=== PATIENT | male | born 2000 | race African-American/Black ===

== ENCOUNTER 2022-03-31 23:16 | Emergency (ER) | payer OTHER ==
[~2022-03-31] VITALS: Ht 180.3 cm; Wt 90.7 kg
[2022-03-31] MEDS ORDERED: LORAZEPAM 2 MG/1 ML VIAL IM ONE (23:30)
[2022-03-31] MEDS ORDERED: HALOPERIDOL LACTATE 5 MG/1 ML VIAL IM ONE (23:30)
[2022-03-31] MEDS ORDERED: IV NORMAL SALINE 1000 ML BAG IV ONE (23:30)
[2022-03-31] MEDS ORDERED: diphenhydrAMINE 50 MG/1 ML VIAL IM ONE (23:30)
[2022-03-31] MEDS ORDERED: HALOPERIDOL LACTATE 5 MG/1 ML VIAL ONE (23:36)
[2022-03-31] MEDS ORDERED: diphenhydrAMINE 50 MG/1 ML VIAL ONE (23:36)
[2022-03-31] MEDS ORDERED: LORAZEPAM 2 MG/1 ML VIAL ONE (23:37)
--- NOTE | 2022-04-01 | NUR ---
Patient came into ER very aggressive, spitting, loud, cussing. AMS. Unable to coorperate.
[2022-04-01] MEDS ORDERED: KETAMINE HCL 500 MG/10 ML INJ ONE ×2 (00:14→00:45)
[2022-04-01] MEDS ORDERED: KETAMINE HCL 500 MG/10 ML INJ IM ONE ×2 (00:15→00:30)
[2022-04-01] MEDS ORDERED: OLANZAPINE 10 MG VIAL IM ONE ×2 (01:20→01:30)
[2022-04-01 01:36] LABS: HEMATOCRIT 48.2 % (36.7-47.1); MEAN CORPUSCULAR HEMOGLOBIN 27.8 uug (23.8-33.4); MEAN CORPUSCULAR VOLUME 83.6 fL (73.0-96.2); PLATELET COUNT (AUTO) 281 K/uL (152-348)
[2022-04-01 01:43] LABS: CARBON DIOXIDE 24 mmol/L (21-32); CHLORIDE 101 mmol/L (98-107); CREATININE 1.7 mg/dL (0.6-1.3); GLUCOSE 88 mg/dL (74-106); POTASSIUM 3.7 mmol/L (3.5-5.1); UREA NITROGEN, BLOOD 10 mg/dL (7-18)
[2022-04-01 01:55] LABS: THYROID STIMULATING HORMONE 1.303 mIU/mL (0.358-3.740)
[2022-04-01] MEDS ORDERED: IV NS 1000 ML 1,000 ML IV ONE (02:00)
[2022-04-01] MEDS ORDERED: LORAZEPAM 2 MG/1 ML VIAL IV ONE (02:00)
--- NOTE | 2022-04-01 02:00 | NUR ---
Abrasions noted from handcuffs.
[2022-04-01] MEDS ORDERED: LORAZEPAM 2 MG/1 ML VIAL ONE ×2 (02:02→03:10)
[2022-04-01 02:03] LABS: ETHANOL < 3 MG/DL (0-0)
[2022-04-01 02:06] LABS: ALANINE AMINOTRANSFERASE 34 U/L (16-63); ALKALINE PHOSPHATASE 149 U/L (50-136); ASPARTATE AMINOTRANSFERASE 73 U/L (15-37); BILIRUBIN,DIRECT 0.1 mg/dL (0.0-0.2); BILIRUBIN,TOTAL 1.1 mg/dL (0.2-1.0); TOTAL PROTEIN, SERUM 9.4 g/dL (6.4-8.2)
[2022-04-01 02:07] LABS: ACETAMINOPHEN < 2.0 ug/mL (10-30)
--- NOTE | 2022-04-01 03:20 | NUR ---
WENT DOWN WITH PATIENT FOR CT SCAN
--- NOTE | 2022-04-01 03:40 | NUR ---
BACK FROM CT SCAN
--- NOTE | 2022-04-01 04:40 | NUR ---
Patient relaxed. Lying in bed.
--- NOTE | 2022-04-01 07:25 | NUR ---
Report given to Neelam PALOMINO.
[2022-04-01] MEDS ORDERED: HALOPERIDOL LACTATE 5 MG/1 ML VIAL IV ONE (08:45)
[2022-04-01 09:03] LABS: MEAN CORPUSCULAR VOLUME 82.9 fL (73.0-96.2); PLATELET COUNT (AUTO) 212 K/uL (152-348)
[2022-04-01 09:08] LABS: CREATININE 1.2 mg/dL (0.6-1.3)
[2022-04-01 09:14] LABS: BILIRUBIN,TOTAL 1.4 mg/dL (0.2-1.0); TOTAL PROTEIN, SERUM 7.5 g/dL (6.4-8.2)
--- NOTE | 2022-04-01 10:00 | NUR ---
[facility] team arrived, evaluated pt. pt resting in bed comfortably, is not aggitated at this time. is aox4.
--- NOTE | 2022-04-01 11:00 | NUR ---
Social Work consult was requested for a patient in the emergency room for mental health and substance abuse resources. Patient is a 21-year-old male who was brought in by ambulance for acute intoxication. Patient is alert and oriented X2. Patient could state his name and that he was in a hospital. Patient appears lethargic. Patient presents with anxious mood and congruent affect. Patient presents with poor judgment and insight. Patient states he has a girlfriend, Soni ([phone]), that lives in [place] and is coming to stay with the patient this weekend. SW spoke to the patient's girlfriend, Soni ([phone]) and she confirmed that she would visiting the patient. Patient states he lives in an [address] at [address] [id number] in [address]. Patient states he is unemployed. Patient denies a history of substance abuse. There is no toxicology report. MORENO provided the patient resources for [facility] [address] [facility] [address] ([phone]), [facility] [address] [facility] [address] ([phone]), and [facility] [address] [place] [id number] ([phone]). Per ER nurse, patient has a history of psychiatric diagnosis of schizoaffective disorder. MORENO provided the patient with mental health resources for [facility] ([phone]) [address] [facility] [address]. MORENO placed the resources in the patients chart. Patient denied suicidal or homicidal ideation. Patient states he wants to be discharged home to [address] [id number], [address]. MORENO provided the patient with a taxi voucher to take the patient home to [address] [place] [address] [address].
--- NOTE | 2022-04-01 11:15 | NUR ---
patient was discharged, IV removed and site secured with pressure dressing, provided with taxi voucher and sent to home address provided. pt left in stable condition. Patient discharged to home in stable condition. Written and verbal after care instructions given. Patient verbalizes understanding of instructions. Stressed follow up or return to ER for worsening s/s.
[2022-04-01 11:44] VITALS: BP 142/81
== END 2022-04-01 11:15 | disposition home or self-care (01) ==
LOC: ER 23:18
DX: F16.929 Hallucinogen use, unspecified with intoxication, unspecified (principal); F11.929 Opioid use, unspecified with intoxication, unspecified; F25.9 Schizoaffective disorder, unspecified; D72.829 Elevated white blood cell count, unspecified; E87.2 Acidosis; N28.9 Disorder of kidney and ureter, unspecified; R94.4 Abnormal results of kidney function studies; R79.89 Other specified abnormal findings of blood chemistry
CPT/HCPCS: 36415; 93005; 71045; 70450; 99285; 96361 ×2; 96372 ×2; 80076; 80053; 80048; 82140; 82550 ×2; 83690; 84443; 85025 ×2; 84484; 96374; 83605 ×2; 80299; 80320; J1200; J1630; J2060 ×2; J3490 ×2; J7040; G0480; J2358